=== PATIENT | female | born 1995 | race Caucasian/White ===

== ENCOUNTER 2024-02-05 23:52 | Inpatient (IN) | payer BC ==
[2024-02-06 00:51] LABS: HEMATOCRIT 39.5 % (37.0-47.0); HEMOGLOBIN 13.4 g/dL (12.0-16.0); MEAN CORPUSCULAR HEMOGLOBIN 29.1 pg (27.0-34.0); MEAN CORPUSCULAR HGB CONC 33.9 g/dL (33.0-35.0); MEAN CORPUSCULAR VOLUME 85.9 fL (80-100); RED BLOOD CELL COUNT 4.6 10^6/uL (4.2-5.4); WHITE BLOOD CELL COUNT,WBC 11.3 10^3/uL (5.0-10.0)
[2024-02-06] MEDS ORDERED: Ondansetron 4 MG/2 ML SDV IVPUSH PRN (00:59)
[2024-02-06] MEDS ORDERED: Sodium Chloride 0.9% 10 ML Syringe FLUSH PRN ×2 (00:59→05:42)
[2024-02-06] MEDS ORDERED: Acetaminophen 325 MG Tab PO PRN (00:59)
[2024-02-06] MEDS ORDERED: Methylergonovine 0.2 MG/1 ML Amp IM PRN (00:59)
[2024-02-06] MEDS ORDERED: Misoprostol 400 MCG (4 X 100 MCG TAB) RECTAL PRN (00:59)
[2024-02-06] MEDS ORDERED: Carboprost Tromethamine 250 MCG/1 ML Amp IM PRN (00:59)
[2024-02-06] MEDS ORDERED: Tranexamic Acid 1,000 MG in Sodium Chloride 0.9% 100 ML IV PRN (00:59)
[2024-02-06] MEDS: Ondansetron 4 MG/2 ML SDV ONE (01:19)
[2024-02-06] MEDS: Lactated Ringers 1,000 ML IV SCH (01:20)
[2024-02-06] MEDS ORDERED: Bupivacaine 0.25% 10 ML SDV ONE (01:33)
[2024-02-06] MEDS ORDERED: fentaNYL 100 MCG/2 ML SDV ONE (01:33)
[2024-02-06] MEDS ORDERED: Phenylephrine HCl In 0.9% NaCl 1 MG/10 ML Syringe IVPUSH PRN (01:58)
[2024-02-06] MEDS ORDERED: ePHEDrine 50 MG/ML SDV IVPUSH PRN (01:58)
[2024-02-06] MEDS ORDERED: Ropivacaine 200 MG in Premix Bag 1 BAG EPIDUR SCH (02:00)
[2024-02-06] MEDS: Oxytocin/Normal Saline 30 UNIT/500 ML BAG IV SCH (03:12)
[2024-02-06] MEDS ORDERED: Oxytocin 10 Units/1 ML SDV IM PRN (05:42)
[2024-02-06] MEDS ORDERED: Hydrocortisone 2.5% Crm 30 GM Tube TOP PRN (05:42)
[2024-02-06] MEDS ORDERED: Simethicone 80 MG Tab.Chew PO PRN (05:42)
[2024-02-06] MEDS: Prenatal Multivitamin with Calcium/Folic Acid/Iron Tab PO SCH (09:01)
[2024-02-06] MEDS: Docusate Sodium 100 MG Cap PO PRN (09:01)
[2024-02-06] MEDS: Ibuprofen 800 MG Tab PO SCH ×2 (09:02→17:04)
[2024-02-06] MEDS: Witch Hazel Medicated Pads 100/Jar TOP PRN (09:03)
[2024-02-06] MEDS: Benzocaine/Menthol 20%-0.5% Spray 78 GM Cannister TOP PRN (09:04)
[2024-02-06] MEDS: Lactated Ringers 1,000 ML IV ONE (13:16)
[2024-02-06] MEDS: Lidocaine 1% 30 ML SDV INJECT ONE (13:16)
[2024-02-07 06:39] LABS: HEMATOCRIT 31.6 % (37.0-47.0); HEMOGLOBIN 10.6 g/dL (12.0-16.0); MEAN CORPUSCULAR HEMOGLOBIN 29.6 pg (27.0-34.0); MEAN CORPUSCULAR HGB CONC 33.5 g/dL (33.0-35.0); MEAN CORPUSCULAR VOLUME 88.3 fL (80-100); RED BLOOD CELL COUNT 3.58 10^6/uL (4.2-5.4)
== END 2024-02-08 09:28 | disposition home or self-care (01) | DRG 560 ==
LOC: DL.OBCHECK 23:52 → DL.OB 02-06 00:59 → OBSVTOIN 02-06 05:14
PROVIDERS: ADMIT Family Medicine; ATTEND Family Medicine
PROC: 10E0XZZ Delivery of Products of Conception, External Approach (ICD-10-PCS; principal; 2024-02-06)
PROC: 10907ZC Drainage of Amniotic Fluid, Therapeutic from Products of Conception, Via Natural or Artificial Opening (ICD-10-PCS; 2024-02-06)
PROC: 0HQ9XZZ Repair Perineum Skin, External Approach (ICD-10-PCS; 2024-02-06)
DX: O76 Abnormality in fetal heart rate and rhythm complicating labor and delivery (principal); O77.0 Labor and delivery complicated by meconium in amniotic fluid; Z3A.39 39 weeks gestation of pregnancy; Z37.0 Single live birth; O69.81X0 Labor and delivery complicated by cord around neck, without compression, not applicable or unspecified; O70.0 First degree perineal laceration during delivery
CPT/HCPCS: 36415; 51702; 59409; 85027; A9270-GY; J2405; J2590; J7120